=== PATIENT | male | born 1965 ===

== ENCOUNTER 2023-06-18 13:26 | Outpatient (OUT) | payer OTHER, SELFPAY ==
--- NOTE | 2023-06-18 | XR_ITS ---
[address] [address] Patient Name: ERICK LOWE MRN: [id number] date: 1965 Sex: M Assigned Patient Location: Current Patient Location: Accession/Order Number: [id number] Exam Date: 06/18/2023 13:30 Report Date: 06/18/2023 15:18 At the request of: OLIVIA GU Procedure: XR ankle LIZ min 3V EXAMINATION: XR ankle LIZ min 3V, XR foot LIZ min 3V HISTORY: BILATERAL ANKLE PAIN COMPARISON: No relevant comparison available. FINDINGS: RIGHT FINDINGS: BONES: No acute fracture or dislocation. Severe degenerative changes of the hindfoot with asymmetric narrowing of the tibiotalar joint with collapse along the medial aspect. Subchondral mixed lytic and sclerotic changes of the talar dome. Lytic changes to the lateral distal tibia. Contour deformity of the distal fibula with corticated bone fragments likely represent remote injury. No acute fracture or dislocation. SOFT TISSUES: Negative. No visible soft tissue swelling. OTHER: Negative. LEFT FINDINGS: BONES: No acute fracture or dislocation. Mild degenerative changes with joint space narrowing marginal osteophyte formation SOFT TISSUES: Negative. No visible soft tissue swelling. OTHER: Negative. 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
--- NOTE | 2023-06-18 | XR_ITS ---
[address] [address] Patient Name: ERICK LOWE MRN: [id number] date: 1965 Sex: M Assigned Patient Location: Current Patient Location: Accession/Order Number: [id number] Exam Date: 06/18/2023 13:30 Report Date: 06/18/2023 15:18 At the request of: OLIVIA GU Procedure: XR foot LIZ min 3V EXAMINATION: XR ankle LIZ min 3V, XR foot LIZ min 3V HISTORY: BILATERAL ANKLE PAIN COMPARISON: No relevant comparison available. FINDINGS: RIGHT FINDINGS: BONES: No acute fracture or dislocation. Severe degenerative changes of the hindfoot with asymmetric narrowing of the tibiotalar joint with collapse along the medial aspect. Subchondral mixed lytic and sclerotic changes of the talar dome. Lytic changes to the lateral distal tibia. Contour deformity of the distal fibula with corticated bone fragments likely represent remote injury. No acute fracture or dislocation. SOFT TISSUES: Negative. No visible soft tissue swelling. OTHER: Negative. LEFT FINDINGS: BONES: No acute fracture or dislocation. Mild degenerative changes with joint space narrowing marginal osteophyte formation SOFT TISSUES: Negative. No visible soft tissue swelling. OTHER: Negative. XR/XR foot LIZ min 3V IMPRESSION: RIGHT CONCLUSION: Severe hindfoot degenerative changes with [id number] articulation of the tibiotalar joint LEFT CONCLUSION: Mild osteoarthritis Electronically authenticated by: ALEXX WILKS Date: 06/18/2023 15:18
== END 2023-06-18 13:27 | disposition home or self-care (01) ==
PROVIDERS: Visit Provider Podiatrist Foot & Ankle Surgery
DX: M25.572 Pain in left ankle and joints of left foot (principal); M25.571 Pain in right ankle and joints of right foot; M79.671 Pain in right foot; M79.672 Pain in left foot; M19.072 Primary osteoarthritis, left ankle and foot
CPT/HCPCS: 73610; 73630